=== PATIENT | female | born 1975 | race Caucasian/White ===

== ENCOUNTER 2016-12-26 17:49 | Emergency (ER) | payer OTHER ==
[2016-12-26 18:21] VITALS: BP 128/54
--- NOTE | 2016-12-26 18:57 | RAD ---
INDICATION: Right hand injury. TECHNIQUE: 4 views of the right hand were obtained. FINDINGS: The bones are in normal alignment. No fracture is seen. Joint spaces appear maintained. IMPRESSION: NO EVIDENCE FOR FRACTURE.
--- NOTE | 2016-12-26 19:31 | UC ---
Hand/Wrist HPI - HPI Summary HPI Summary: Patient presents to with CC of right hand pain after suffering repeated blunt traumas to the hand by a student with a toy object. She notes to radiating pain up the wrist and to the mid arm. No elbow or finger involvement. She is able to make a fist, but with pain. There is small effusion and ecchymosis over the right dorsum of the hand at the MCP joints of the fourth and fifth fingers. She denies other injuries. Denies pain at rest, but endorses pain with flexion and extension of the fingers. No pain with wrist flexion. - History Of Current Complaint Chief Complaint: UCUpperExtremity Stated Complaint: HAND INJURY Time Seen by Provider: 12/26/16 19:01 Hx Obtained From: Patient Hx Last Menstrual Period: hysterectomy ?: No Onset/Duration: Sudden Onset Severity Initially: Moderate Severity Currently: Moderate Pain Intensity: 8 Pain Scale Used: 0-10 Numeric Character Of Pain: Aching, Throbbing Aggravating Factor(s): Movement, Lifting, Flexion, Abduction, Adduction Alleviating: Rest, Ice Associated Signs And Symptoms: Positive: Swelling, Bruising Related History: Occupational Injury, Dominant Hand Right - Allergies/Home Medications Allergies/Adverse Reactions: Allergies Allergy/AdvReac Type Severity Reaction Status Date / Time Erythromycin Allergy Unknown Verified 12/26/16 18:12 Reaction Details Home Medications: Home Medications Ibuprofen [Advil] 400 mg PO 12/26/16 [History] PMH/Surg Hx/FS Hx/Imm Hx Previously Healthy: Yes - Surgical History Surgical History: Yes Surgery Procedure, Year, and Place: hysterectomy - Social History Occupation: Employed Full-time Lives: With Family Alcohol Use: None Substance Use Type: None Smoking Status (MU): Former Smoker Review of Systems Constitutional: Negative Skin: Bruising, Other - swelling Respiratory: Negative Cardiovascular: Negative Neurovascular: Negative Musculoskeletal: Arthralgia Neurological: Negative Psychological: Negative All Other Systems Reviewed And Are Negative: Yes Physical Exam Triage Information Reviewed: Yes Appearance: Well-Appearing, No Pain Distress, Well-Nourished Vital Signs: Initial Vital Signs Temp 98.8 F 12/26/16 18:11 Pulse 86 12/26/16 18:11 Resp 16 12/26/16 18:11 BP 128/54 12/26/16 18:11 Pulse Ox 98 06/05/17 18:11 Vital Signs Reviewed: Yes Eye Exam: Normal Eyes: Positive: Conjunctiva Clear Neck exam: Normal Neck: Positive: Supple, Nontender, No Lymphadenopathy Respiratory Exam: Normal Respiratory: Positive: Chest non-tender, Lungs clear Cardiovascular Exam: Normal Cardiovascular: Positive: RRR Musculoskeletal Exam: Normal Musculoskeletal: Positive: Strength Intact Neurological Exam: Normal Neurological: Positive: Alert Psychological Exam: Normal Psychological: Positive: Normal Response To Family Skin Exam: Normal Hand/Wrist Course/Dx - Course Course Of Treatment: Patient presents s/p occupational injury. Blunt trauma to the dorsum of the hand with ecchymosis and swelling. Xray negative for fx. Patient is otherwise healthy. Edison wrapped for comfort. Encouraged Ibuprofen, ice, rest, and elevation. Note given for work. Follow up with Dr. Chang as needed for increased pain or other symptoms. - Differential Dx/Diagnosis Differential Diagnosis/HQI/PQRI: Contusion, Fracture, Sprain, Strain, Tendonitis Provider Diagnoses: Hand Contusion Discharge - Discharge Plan Condition: Stable Disposition: HOME Patient Education Materials: Contusion in Adults (ED) Forms: *Work Release Referrals: Anton Chang MD [Medical Doctor] - Ludivina Saldivar [Primary Care Provider] - Additional Instructions: Ibuprofen 600mg three times daily Ice Rest Elevate Continue with edison wrap for 2 days Follow up with Dr. Chang if symptoms persist.
== END 2016-12-26 19:33 | disposition home or self-care (01) ==
LOC: UCEAST 17:49
DX: S60.221A Contusion of right hand, initial encounter (principal); W22.8XXA Striking against or struck by other objects, initial encounter; Y92.219 Unspecified school as the place of occurrence of the external cause
CPT/HCPCS: 99212; G0463